=== PATIENT | male | born 1945 | race Caucasian/White ===

== ENCOUNTER 2018-04-20 07:39 | Inpatient (IN) ==
[2018-04-20] MEDS ORDERED: Propofol Inj 500 MG/50 ML Vial ONE ×4 (07:59→14:18)
[2018-04-20] MEDS ORDERED: Vancomycin Inj 1 GM/200 ML PIGGYBACK IV.SIG ONE (08:36)
[2018-04-20] MEDS ORDERED: Chlorhexidine 4% Topical 120 APPLIC/120 ML Bottle TOPICAL SCH (09:30)
[2018-04-20] MEDS ORDERED: Metoprolol Tartrate 25 MG Tablet PO SCH (09:30)
[2018-04-20] MEDS ORDERED: Chlorhexidine Gluconate 2% 1 Pack (2 Cloths) TOPICAL SCH (09:30)
[2018-04-20] MEDS: ceFAZolin 2 GM Premix Inj 2 GM/50 ML PIGGYBACK IV.SIG SCH (09:53)
[2018-04-20] MEDS ORDERED: Sodium Chlor 0.9% Inj 500 ML IV.SIG SCH (10:00)
[2018-04-20] MEDS ORDERED: Vancomycin Inj 1 GM/200 ML PIGGYBACK IV.SIG SCH (10:00)
[2018-04-20] MEDS ORDERED: Heparin - SQ 10,000 UNITS/ML Vial SQ ONE (10:02)
[2018-04-20] MEDS ORDERED: fentaNYL Citrate Inj 100 MCG/2 ML Ampul ONE ×3 (12:07→16:49)
[2018-04-20] MEDS ORDERED: Morphine Inj 4 MG/ML Vial IV.SIG ONE (15:55)
[2018-04-20] MEDS ORDERED: Morphine Inj 4 MG/ML Vial IV.PUSH PRN (15:55)
[2018-04-20] MEDS ORDERED: Naloxone Inj 0.4 MG/ML Vial IV.PUSH PRN (15:55)
[2018-04-20] MEDS ORDERED: Temazepam 15 MG Capsule PO PRN (15:55)
[2018-04-20] MEDS ORDERED: Bisacodyl 10 MG Supp RECTAL PRN (15:55)
[2018-04-20] MEDS ORDERED: Post-op Orders (for Pharmacy) OTHER STA (15:55)
--- NOTE | 2018-04-20 16:12 | P.OP ---
- Preoperative Diagnosis (1) Stenosis, spinal, lumbar (2) Lumbosacral radiculopathy (3) Herniated nucleus pulposus, L2-3 left - Postoperative Diagnosis (1) Herniated nucleus pulposus, L2-3 left (2) Lumbosacral radiculopathy (3) Stenosis, spinal, lumbar Date of procedure: 04/20/18 Procedure: Bilateral lumbar laminectomy L2-3, L3-4, L4-5. Resection herniated nucleus pulposus L2-3, left. Bilateral foraminotomies L2-3, L3-4, L4-5. Subtotal facet resection L2-3 from the left, L3-4 for the left, L4-5 from the right. Posterior lateral interbody fusion L2-3, L3-4, L4-5. Placement of interbody cages L2-3, L3-4, L4-5. Posterior spinal segmental instrumentation L2-L5. Major bone grafting of the lumbar spine. Posterior spinal fusion L2-L5, lateral transverse process technique Anesthesia: GETA Surgeon: Jairo Mcrae MD Event Services Manager: Jaimee Walsh Operation and Findings: EBL: 500 ml NOTE: India Walsh MD was present for the entire surgical procedure as my environmental assistant. In my medical opinion her skill and care was necessary for proper management of this patient INDICATIONS: This patient is a 72-year-old white male followed for long time for spinal stenosis with neurologic claudication. He has had injections of cortisone, physical therapy, medication and alternate activities. He is had declining function with progressive loss of strength in his legs. Recently he had a very sharp decline and repeat study showed evidence of a disc herniation to the left at L2-3 creating a near cauda equina syndrome with progressive weakness. He has significant foraminal stenosis bilaterally at L2-3 L3-4 and L4 -5 which would require significant facet resection for complete and adequate decompression. Therefore he presents for not only decompression but also fusion at the same levels. INSTRUMENTATION: Tk tavarez PROCEDURE: The patient brought to the operating room and anesthetized the supine position. The patient positioned prone on the Alex frame on the Jd table. All pressure points are protected. The back was scrubbed with alcohol followed by Hibiclens followed by ChloraPrep and draped sterilely and antibiotics were given within a routine time window. A timeout was done. Lateral radiographic images used to identify the proper level for the procedure. Compared care for the preoperative studies. Skin markings were made anticipating surgical treatment. A midline incision was made. Dissection allowed exposure from the facet joint of L2-3 down to L5. The lateral transverse process was exposed involving L2, L3 , L4 and L5. Deep retractors were positioned. Radiographs were used to confirm proper level of dissection. The posterior spinous processes were removed and saved for later bone grafting. A bilateral laminectomy under microscope was performed involving L2-3, L3-4 and L4-5. The facet joint was taken down subtotally to the left at L2-3 level. We found a high-grade stenosis associated with the disc herniation and a high degree of scar tissue adjacent to the dura suggestive of a ganglion cyst that had become adherent to the dura. In addition there was a large disc herniation at and below the disc space contributing to compression centrally as well as to the left L3 nerve root. The foraminal decompression at that level was very satisfactory. An annulotomy was performed. A total discectomy was performed. A combination of Nucel stem cells, autogenous bone graft and demineralized bone matrix was mixed together and injected into the disc space. A spine wave stacks cage was utilized and deployed. The alignment was satisfactory. The decompression continued down to the L3-4 level. A left-sided subtotal facet resection was accomplished allowing decompression of the exiting L3 nerve root on that side. A decompression of the foramen on the contralateral side was also accomplished. A total discectomy was accomplished. Bone graft was placed into the disc space followed by placement of a second cage which was elevated. The attention was directed to the right side at L4-5. Following the bilateral decompression, a subtotal facet resection on the right side was accomplished allowing decompression of the foramen and placement of a third cage using a same technique. Under lateral radiographic control, small holes were made within the pedicles of L2, L3, L4 and L5. 7 mm screws were positioned after first exploring the pedicle, measuring carefully using a tap and then finally placing the proper screw. Each screw was charged with electric current there are no abnormal potentials registered in either lower extremity. A proper length judi was contoured and the patient spine was positioned in proper lordosis. The system was tightened according to casting supervisor's recommendation. The wound was irrigated multiple times with normal saline. The lateral gutters were prepared and bone grafting placed from L2-L5. Intraoperative images were obtained. The fascia was closed with #1 Vicryl suture, subcutaneous tissue 2-0 Vicryl suture followed by 3-0 Vicryl and Steri-Strips. A sterile dressing was applied. Intraoperative radiographs were obtained. No complication was appreciated. The patient had a sterile dressing applied. The patient was awakened and taken to recovery room in satisfactory condition. FINDINGS: There was a high-grade stenosis at all 3 levels. The L2-3 level was especially unstable as well as L4-5. The fusion was necessary because of the degree of decompression necessary for proper decompression of this patient's spine. The final solution appeared to be very satisfactory.
--- NOTE | 2018-04-20 16:38 | P.DCO ---
- Physical Therapy Physical Therapy: Gait training, Safety evaluation S/P Spinal Fusion: Gait training with walker, Weight bearing as tolerated, No twisting of torso, No bending - Nursing RN: 3 days/week x 2 weeks Dressing changes: Daily dressing change - Certification Need for Home Health services: I have seen patient [place] on 04/20/18. My clinical findings support the need for the requested home health care services because: Need for Home Health Services: Limited ability to care for self Homebound Certification: I certify that my clinical findings support that this patient is homebound because: Homebound Certification: Unsteady gait/balance
[2018-04-20] MEDS ORDERED: Lidocaine PF 1% Inj 5 ML Syringe INFILTRATN ONE (16:55)
[2018-04-20] MEDS ORDERED: Succinylcholine Inj 100 MG/5 ML Syringe IV.PUSH ONE (16:55)
[2018-04-20] MEDS ORDERED: Phenylephrine/NS 1000 MCG/10ML Syringe IV.PUSH ONE (16:55)
[2018-04-20] MEDS ORDERED: Glycopyrrolate Inj 1 MG/5 ML Syringe IV.PUSH ONE (16:55)
[2018-04-20] MEDS ORDERED: *morphine SULFATE 4 MG/ML PERIprocedure ONLY ONE ×2 (17:02→17:53)
--- NOTE | 2018-04-20 17:06 | XR ---
EXAM DATE: 04/20/2018 4:15 PM EDT AGE/SEX: 72 years / Male INDICATIONS: Fusion L2 to L5 with screws and rods placement. CLINICAL DATA: This is the patient's initial encounter. Patient reports that signs and symptoms have been present for 1 day and indicates a pain score of Nonresponsive. MEDICAL/SURGICAL HISTORY: None. None. COMPARISON: No prior exams available for comparison. FINDINGS: There is anterior and posterior fusion with pedicle screws and interbody graft from L2-L5. The verteb ral bodies are normal in alignment on the lateral view. CONCLUSION: Postsurgical changes as above. Electronically signed by: Negro Leone MD 04/20/2018 5:05 PM EDT
[2018-04-20] MEDS: Morphine Inj 30 MG/30 ML PCA.VIAL PCA PRN (17:24)
[2018-04-20] MEDS: Multivitamin/Minerals Therapeutic Tablet PO SCH (23:37)
[2018-04-20] MEDS: Senna/Docusate Sodium 8.6/50 MG Tablet PO SCH (23:37)
[2018-04-21] MEDS: Morphine Inj 30 MG/30 ML PCA.VIAL PCA PRN ×2 (00:40→07:13)
[2018-04-21] MEDS: Multivitamin/Minerals Therapeutic Tablet PO SCH ×2 (09:29→23:11)
[2018-04-21] MEDS: Senna/Docusate Sodium 8.6/50 MG Tablet PO SCH ×2 (09:29→23:11)
[2018-04-21] MEDS: hydroCHLOROthiazide 25 MG Tablet PO SCH (09:29)
[2018-04-21] MEDS: ceFAZolin 2 GM Premix Inj 2 GM/50 ML PIGGYBACK IV.SIG SCH (09:53)
--- NOTE | 2018-04-21 10:20 | P.PNOP ---
Subjective Interval history: Patient comfortable Sitting in chair with brace on Physical Exam Vital signs: Vital Signs 04/20/18 16:30 04/20/18 16:45 04/20/18 17:00 Temperature 98.5 F 98.5 F 98.5 F Pulse Rate 88 87 87 Respiratory Rate 14 14 14 Blood Pressure 100/59 L 93/55 L 98/58 L Pulse Oximetry 99 99 100 04/20/18 17:15 04/20/18 17:30 04/20/18 17:45 Temperature 98.5 F 98.5 F 98.5 F Pulse Rate 81 80 79 Respiratory Rate 14 14 16 Blood Pressure 94/55 L 105/61 104/60 Pulse Oximetry 100 100 94 L 04/20/18 18:13 04/20/18 19:40 04/20/18 19:45 Temperature 98.5 F 98.5 F 97.6 F Pulse Rate 88 98 H 65 Respiratory Rate 16 18 18 Blood Pressure 106/61 109/55 L 107/63 Pulse Oximetry 99 93 L 97 04/20/18 20:30 04/21/18 01:10 04/21/18 08:00 Temperature 97.6 F Pulse Rate 86 Respiratory Rate 18 18 18 Blood Pressure 123/58 L Pulse Oximetry 96 Intake & Output 04/20/18 04/21/18 04/21/18 18:59 06:59 18:59 Intake Total 3800 / 3800 1200 / 1200 Output Total 500 / 500 810 / 810 Balance 3300 / 3300 390 / 390 Weight 106 kg 106 kg Intake: IV 50 / 50 1200 / 1200 LR 1000 mL Inj 1,000 ML @ 80 1000 / 1000 mls/hr IV.CONT .[id number] RODRIGUEZ Rx# :[id number] Ancef 2 GM Premix Inj 2 gm In 50 / 50 50 ml @ 100 mls/hr IV.SIG MULTI M[employer]ION HELICOPTER AIRCREWMAN RODRIGUEZ Rx#:[id number] Ancef Inj 1,000 MG In NS Inj 200 / 200 100 ML @ 200 mls/hr IV.SIG Q6H RODRIGUEZ Rx#:[id number] Anesthesia Amount 3750 / 3750 Output: Estimated Blood Loss 500 / 500 Urine Amount (Catheter) 350 / 350 325 350 / 350 Wound Drainage 460 / 460 # 1 Lower Back 180 / 180 Back Hemovac 280 / 280 Other: Weight On Admission 187.96 kg - Constitutional no acute distress Comments: Santamaria in place - Routine HEENT Exam Head: Present: normocephalic - Routine Extremities Exam Present: full ROM - Routine Skin Exam Present: intact - Routine Neurological Exam Present: alert, oriented X3, moving all extremities, normal tone - Urinary Catheter Management 325 Cath placed during this visit: no Urethral indwelling: Yes Reason for continuing: Other continuation reason Results - Labs CBC & Chem 7: 04/21/18 06:11 Laboratory Results - last 24 hr 04/21/18 06:11 Hgb 12.6 L - Imaging Impressions Lumbar Spine X-Ray 04/20/18 00:00 CONCLUSION: Postsurgical changes as above. Assessment and Plan - Problem List (1) Stenosis, spinal, lumbar Code(s): M48.061 - Spinal stenosis, lumbar region without neurogenic claudication Status: Acute Plan: Pain control Monitor medically Physical therapy D/C planning Dr. Mcrae's team to re-eval tomorrow - Assessment and Plan S/P Multi-level Lumbar Decompression POD#1
[2018-04-21] MEDS: oxyCODONE/Acetaminophen 10/325 Tablet PO PRN ×2 (18:47→23:13)
[2018-04-22] MEDS ORDERED: Aluminum/Magnesium/Simethacone Susp 30 ML UDC PO PRN (03:15)
[2018-04-22] MEDS: oxyCODONE/Acetaminophen 10/325 Tablet PO PRN ×4 (03:23→17:06)
[2018-04-22] MEDS: hydroCHLOROthiazide 25 MG Tablet PO SCH (09:44)
[2018-04-22] MEDS: Senna/Docusate Sodium 8.6/50 MG Tablet PO SCH ×2 (09:44→21:41)
[2018-04-22] MEDS: Multivitamin/Minerals Therapeutic Tablet PO SCH ×2 (09:44→21:42)
--- NOTE | 2018-04-22 21:58 | P.PNOP ---
Subjective Interval history: Patient seen at 0800 this morning. No new complaints. Back sore. Struggling with 'hiccups and belching'. No new leg pain. Was able to ambulate with nursing staff. Questions about discharge and his brace. Urinating well. Physical Exam Vital signs: Vital Signs 04/22/18 00:00 04/22/18 04:00 04/22/18 08:00 Temperature 97.4 F L 97.8 F 97.5 F L Pulse Rate 85 107 H 78 Respiratory Rate 20 20 18 Blood Pressure 170/84 H 118/73 153/69 H Pulse Oximetry 94 L 94 L 96 04/22/18 11:38 04/22/18 12:00 04/22/18 16:00 Temperature 98.1 F 97.7 F Pulse Rate 87 78 Respiratory Rate 18 18 Blood Pressure 151/76 H 132/61 Pulse Oximetry 97 98 96 04/22/18 20:00 Temperature 98.1 F Pulse Rate 81 Respiratory Rate 18 Blood Pressure 118/54 L Pulse Oximetry 96 Intake & Output 04/22/18 04/22/18 04/23/18 06:59 18:59 06:59 Intake Total 1350 / 1350 Output Total 300 / 300 Balance -300 / -300 1350 / 1350 Intake: IV 1350 / 1350 LR 1000 mL Inj 1,000 ML @ 80 1000 / 1000 mls/hr IV.CONT .[id number] RODRIGUEZ Rx# :[id number] Vancomycin Inj 1 gm In 200 ml @ 200 / 200 200 mls/hr IV.SIG HOSTEL PARENT RODRIGUEZ Rx#:[id number] Ancef 2 GM Premix Inj 2 gm In 50 / 50 50 ml @ 100 mls/hr IV.SIG HOSTEL PARENT RODRIGUEZ Rx#:[id number] Output: Urine 300 / 300 Other: # Voids 2 4 Date of Last Bowel Movement 04/18/18 04/18/18 Narrative: Laying in bed Wearing his back brace NAD VSS L/S Dressing intact but reinforced, mild-moderate SS drainage distal, no erythema +motor at distal, +sens, +nvi neg hommans bilat - Constitutional no acute distress, cooperative - Urinary Catheter Management 325 Cath placed during this visit: yes, but has since been removed by the nurse Urethral indwelling: Yes Reason for continuing: Decision to DC catheter Removal date: 04/21/18 Removal time: 14:52 Results - Labs CBC & Chem 7: 04/21/18 06:11 Assessment and Plan - Ortho Post Op Day # 2 - Problem List (1) Stenosis, spinal, lumbar Code(s): M48.061 - Spinal stenosis, lumbar region without neurogenic claudication Status: Acute - Assessment and Plan Ortho stable. Pain moderately controlled. Some drainage still present at incision. Will continue to reinforce. Will change dressing before discharge home. WBAT. Out of bed with brace for 10-12 weeks. PO meds as needed. IS encouraged. Ice to lumbar spine bid. D/C planning, likely Home w [facility] tomorrow.
--- NOTE | 2018-04-22 22:06 | P.DS ---
Date of admission: 04/20/18 07:39 Primary care physician: Obed Acuña Attending physician on discharge: Jairo Mcrae Anticipated date of discharge: 04/23/18 Brief History from admission: Mr. Park Has had ongoing low back and leg pain for the last 6 years. In 2011 he sought adult care provider for his condition. He pursued this for several months. He then went to his primary care physician where an x-ray and MRI were ordered. He was told he had spinal stenosis. He began [id number] Advil and was stable for approximately 4-5 years. He is pain began to increase substantially in 2016. A repeat MRI was ordered. He is evaluated by orthopedics August 2017. Physical therapy was prescribed in addition to diclofenac and prednisone. He eventually underwent epidural steroid injections January 2018 which were very helpful but only lasted 2-3 months. Eventually surgical treatment was recommended In the form of laminectomy and fusion L2-L5. He agreed and now presents for the above. DS: Diagnosis - Discharge Diagnosis (1) Stenosis, spinal, lumbar Status: Acute DS: Medications - Discharge Medications Prescriptions: oxycodone-acetaminophen 1 tab PO Q4H PRN #42 tab PRN Reason: Pain Less Than 5 On Scale DS: Summary Hospital Course: Surgical treatment was performed on the day of admission without complication. He recovered well in PACU and was transferred to the orthopaedic floor. Pain was controlled with IV and oral medications. He was compliant with physical therapy and all precautions including use of his brace. After 3 days days he was discharged home with home health care. He was educated to continue his lumbar brace cultural centre manager when out of bed for 10-12 weeks, to pursue a high fiber diet for 3-5 days postop and to ice the operative site 2 times daily for 7 days. He was given a prescription of oxycodone at discharge. - Time Spent with Patient Total time spent providing and/or coordinating discharge services: Less than 30 minutes - Quality: VTE Deep Vein Thrombosis/Pulmonary Embolism Present on Admission: No Exam Vital signs: Vital Signs 04/22/18 00:00 04/22/18 04:00 04/22/18 08:00 Temperature 97.4 F L 97.8 F 97.5 F L Pulse Rate 85 107 H 78 Respiratory Rate 20 20 18 Blood Pressure 170/84 H 118/73 153/69 H Pulse Oximetry 94 L 94 L 96 04/22/18 11:38 04/22/18 12:00 04/22/18 16:00 Temperature 98.1 F 97.7 F Pulse Rate 87 78 Respiratory Rate 18 18 Blood Pressure 151/76 H 132/61 Pulse Oximetry 97 98 96 04/22/18 20:00 Temperature 98.1 F Pulse Rate 81 Respiratory Rate 18 Blood Pressure 118/54 L Pulse Oximetry 96 Intake & Output 04/22/18 04/22/18 04/23/18 06:59 18:59 06:59 Intake Total 1350 / 1350 Output Total 300 / 300 Balance -300 / -300 1350 / 1350 Intake: IV 1350 / 1350 LR 1000 mL Inj 1,000 ML @ 80 1000 / 1000 mls/hr IV.CONT .[id number] RODRIGUEZ Rx# :[id number] Vancomycin Inj 1 gm In 200 ml @ 200 / 200 200 mls/hr IV.SIG LEAD MEDICAL TECHNOLOGIST RODRIGUEZ Rx#:[id number] Ancef 2 GM Premix Inj 2 gm In 50 / 50 50 ml @ 100 mls/hr IV.SIG LEAD MEDICAL TECHNOLOGIST RODRIGUEZ Rx#:[id number] Output: Urine 300 / 300 Other: # Voids 2 4 Date of Last Bowel Movement 04/18/18 04/18/18 Results Procedures completed during hospitalization: Bilateral lumbar laminectomy and fusion L2-L5, posterior interbody fusion, segmental instrumentation L2-L5, bone graft. - Impressions ITS Impressions Lumbar Spine X-Ray 04/20/18 00:00 CONCLUSION: Postsurgical changes as above. Discharge Plan - Discharge Disposition Patient Disposition: /Home Health Service - Discharge Condition Condition: Stable - Discharge Order Discharge Orders: Discharge Order (Routine); Ordered 04/20/18 Ordered By: Jairo Mcrae - Discharge Details Anticipated Discharge Date: 04/23/18 - Physicians Team Primary Care Provider: Obed Acuña Attending Provider: Jairo Mcrae Other Providers: [facility] - Rxs /Orders / Referrals /Forms Prescriptions: New oxycodone-acetaminophen 10-325 mg Tablet 1 tab PO Q4H PRN (Reason: Pain Less Than 5 On Scale) Qty: 42 RF: 0 Continue aspirin [Adult Low Dose Aspirin] 81 mg Tablet,Delayed Release (Dr/Ec) 81 mg PO DAILY coenzyme Q10 [Co Q-10] 100 mg Capsule 100 mg PO DAILY doxycycline hyclate 100 mg Tablet 100 mg PO DAILY hydrochlorothiazide 25 mg Tablet 25 mg PO DAILY oxycodone-acetaminophen 10-325 mg Tablet 1 tab PO Q4H PRN (Reason: Pain) pyridoxine (vitamin B6) [Vitamin B-6] 100 mg Tablet 100 mg PO DAILY sildenafil 50 mg Tablet See Label Instructions .ROUTE .COMPLEX PRN (Reason: Erectile Dysfunction) Discontinued diclofenac sodium 75 mg Tablet,Delayed Release (Dr/Ec) 75 mg PO BID Ambulatory Orders / Order Sets / DME: Adjustable Commode 3-in-1 (1 each) (Routine) Location: Determined by Patient Ordered By: Pascale Linder Walker With Front Wheels (1 each) (Routine) Location: Determined by Patient Ordered By: Pascale Linder Referrals: Obed Acuña MD [Primary Care Provider] - See Instructions - Discharge Instructions Patient Printed Instructions: Oxycodone/Acetaminophen (By mouth), Laminectomy ( DC), How to Choose and Use a Walker (GEN), Fall Prevention (DC), Lumbar Brace ( DC) Additional Instructions: Prescription for Oxycodone provided at discharge Follow up appointment for 05/05 at 9:[address] Mcrae [place] office Daily dressing changes - Post Discharge Care Plan Care Plan Goals: Your Health Problems: Goals to Promote Your Health: * To prevent worsening of your condition * To maintain your health at the optimal level Directions to Meet Your Goals: * Take your medications as prescribed * Follow your dietary instruction * Follow activity as directed * Keep your appointments as scheduled * Take your immunizations and boosters as scheduled * If your symptoms worsen call your PCP * If no PCP go to Urgent Care or Emergency Room Smoking is dangerous to your health. Avoid second hand smoke. You may reach the 24-hour crisis hotline for domestic abuse at 0-396-483- 8903.Your Health Problems: Precautions: - Wear your back brace cultural centre manager when out of bed for 10-12 weeks following surgery. - Avoid repetitive bending, lifting and stooping. No heavy lifting. - Wear stable, supportive shoes. Avoid flip-flops or other shoes that may increase risk for falls. Directions to Meet Your Goals: * Take your medications as prescribed * Follow your dietary instruction * Follow activity as directed. Ice the operative site 1-2 times daily for 5-7 days postop. * Keep your appointments as scheduled * Take your immunizations and boosters as scheduled * If your symptoms worsen call your PCP * If no PCP go to Urgent Care or Emergency Room Smoking is dangerous to your health. Avoid second hand smoke. You may reach the 24-hour crisis hotline for domestic abuse at .
[2018-04-23] MEDS: oxyCODONE/Acetaminophen 10/325 Tablet PO PRN ×3 (03:33→14:22)
[2018-04-23] MEDS: hydroCHLOROthiazide 25 MG Tablet PO SCH (08:31)
--- NOTE | 2018-04-23 08:32 | P.PNOP ---
Subjective Interval history: No new complaints. Back pain. Still having hiccups. No other concerns. No CP or SOB Physical Exam Vital signs: Vital Signs 04/22/18 11:38 04/22/18 12:00 04/22/18 16:00 Temperature 98.1 F 97.7 F Pulse Rate 87 78 Respiratory Rate 18 18 Blood Pressure 151/76 H 132/61 Pulse Oximetry 97 98 96 04/22/18 20:00 04/22/18 23:02 04/23/18 00:00 Temperature 98.1 F 98.2 F Pulse Rate 81 98 H Respiratory Rate 18 18 18 Blood Pressure 118/54 L 135/64 Pulse Oximetry 96 98 98 04/23/18 04:00 04/23/18 08:00 Temperature 97.3 F L 99.0 F Pulse Rate 97 H 95 H Respiratory Rate 17 20 Blood Pressure 140/63 108/52 L Pulse Oximetry 96 95 Intake & Output 04/22/18 04/23/18 04/23/18 18:59 06:59 18:59 Intake Total 1350 / 1350 Balance 1350 / 1350 Intake: IV 1350 / 1350 LR 1000 mL Inj 1,000 ML @ 80 1000 / 1000 mls/hr IV.CONT .[id number] RODRIGUEZ Rx# :[id number] Vancomycin Inj 1 gm In 200 ml @ 200 / 200 200 mls/hr IV.SIG CFA RODRIGUEZ Rx#:[id number] Ancef 2 GM Premix Inj 2 gm In 50 / 50 50 ml @ 100 mls/hr IV.SIG CFA RODRIGUEZ Rx#:[id number] Other: # Voids 4 3 Date of Last Bowel Movement 04/18/18 04/22/18 Narrative: Laying in bed Wearing his back brace NAD VSS L/S Dressing intact, recently changes, clean and dry, no new drainage, no erythema +motor at distal, +sens, +nvi neg hommans bilat - Constitutional no acute distress - Urinary Catheter Management 325 Cath placed during this visit: yes, but has since been removed by the nurse Urethral indwelling: Yes Reason for continuing: Decision to DC catheter Removal date: 04/21/18 Removal time: 14:52 Results - Labs CBC & Chem 7: 04/21/18 06:11 Assessment and Plan - Ortho Post Op Day # 3 - Problem List (1) Stenosis, spinal, lumbar Code(s): M48.061 - Spinal stenosis, lumbar region without neurogenic claudication Status: Acute Plan: s/p Lami/Fusion L2-L5 - Assessment and Plan Ortho stable. Pain moderately controlled. Incision dressing recently changed. Looks good today. Change dressing to surgical optifoam dressing before dicharged today. Thorazine 25mg one time before discharge to assist with hiccups. Do not give within an hour of zofran. WBAT. Out of bed with brace for 10-12 weeks. PO meds as needed. IS encouraged. Ice to lumbar spine bid. D/C planning, home today after PT.
[2018-04-23] MEDS: Senna/Docusate Sodium 8.6/50 MG Tablet PO SCH (08:33)
[2018-04-23] MEDS: Multivitamin/Minerals Therapeutic Tablet PO SCH (08:34)
[2018-04-23] MEDS ORDERED: ChlorproMAZINE 25 MG Tablet PO ONE (09:15)
== END 2018-04-23 16:56 | disposition home health service (06) ==
LOC: HSDI 07:39 → N06 20:31
PROVIDERS: ADMIT Orthopaedic Surgery Orthopaedic Surgery of the Spine; ATTEND Orthopaedic Surgery Orthopaedic Surgery of the Spine